=== PATIENT | male | born 1960 | race Caucasian/White ===

== ENCOUNTER 2019-01-16 16:44 | Observation (INO) ==
[2019-01-16] MEDS ORDERED: 0.9 % Sodium Chloride 1,000 ML IVC ONE (17:41)
[2019-01-16] MEDS ORDERED: diazePAM 10 MG/2 ML SYRINGE IVP STA (17:41)
[2019-01-16] MEDS ORDERED: Ondansetron 4 MG/2 ML VIAL IVP ONE (17:41)
[2019-01-16 18:03] LABS: Basophils % 0.4 %; Eosinophils # 0.1 K/mcL (0.0-0.6); Eosinophils % 0.8 %; Hemoglobin 14.8 g/dL (12.9-16.9); Immature Granulocytes % 0.3 % (0-4); Lymphocytes # 1.7 K/mcL (0.6-4.6); Lymphocytes % 22.4 %; Mean Corpuscular HGB Conc 31.5 g/dL (31.6-35.5); Mean Corpuscular Hemoglobin 27.4 pg (28.0-33.3); Mean Corpuscular Volume 86.9 fL (83.0-100.0); Mean Platelet Volume 12.5 fL (9.4-12.4); Monocytes # 0.6 K/mcL (0.0-1.3); Monocytes % 8.2 %; Neutrophils # 5.1 K/mcL (1.6-8.9); Platelet Count 191 K/mcL (140-400); Red Blood Count 5.41 M/mcL (4.19-5.50); Red Cell Distribution Width 14.3 % (11.5-14.5); Segmented Neutrophils % 67.9 %; White Blood Count 7.6 K/mcL (4.3-11.1)
[2019-01-16 18:43] LABS: BUN/Creatinine Ratio 25 (6-26); Blood Urea Nitrogen 26 mg/dL (6-20); Calcium 10.2 mg/dL (8.6-10.3); Carbon Dioxide 26 mEq/L (23-29); Chloride 102 mEq/L (98-107); Glucose 161 mg/dL (70-105); Magnesium 2.3 mg/dL (1.6-2.6); Osmolality,Calculated 294 (280-300); Sodium 138 mEq/L (136-145); Troponin I < 0.03 ng/mL (< 0.04); eGFR For African Americans > 60 (> 60); eGFR For Non-African Americans > 60 (> 60)
--- NOTE | 2019-01-16 19:20 | Emergency Department Note ---
Disposition Clinical Impression: Benign paroxysmal positional vertigo Qualifiers: Laterality: unspecified laterality Qualified Code(s): H81.10 - Benign paroxysmal vertigo, unspecified ear Disposition: Admitted As Inpatient Condition: Good Instructions: Benign Paroxysmal Positional Vertigo (ED) Referrals: Betty Storm CNP [Primary Care Provider] - Time of Disposition: 19:23 Dizziness HPI - General Chief Complaint: ED Dizziness Stated Complaint: vomiting/dizzy Time Seen by Provider: 01/16/19 17:24 Source: patient Limitations: no limitations Nursing Notes Reviewed: Yes Vital Signs Reviewed: Yes - History of Present Illness HPI Narrative: 58-year-old male since emergency room for vertigo component complaint. States started suddenly yesterday. Was seen at [facility] ER last night for same complaint. States all his workup was negative including a head CAT scan. States he was given medication in the ER and then was sent home and was doing better but once the medication wore off he started having worsening symptoms. He denies any falls or any head trauma. No fevers or chills or any neck pain or neck stiffness. He denies numbness in his face arm or leg. Again he describes this as a sudden onset vertigo yesterday. He has no other complaints other than associated nausea and vomiting secondary to the room spinning. States he opens his eyes he gets very dizzy and feels like the room is spinning. He did not get the Antivert filled that they wrote him yesterday. No speech comes. No tongue issues. No weakness on one side versus the other. - Related Data Home Medications Medication Instructions Recorded Confirmed Empagliflozin [Jardiance] 25 mg PO DAILY 01/16/19 01/16/19 Lisinopril [Zestril] 40 mg PO DAILY 01/16/19 01/16/19 Metoprolol Tartrate [Lopressor] 50 mg PO BID 01/16/19 01/16/19 Omeprazole [PriLOSEC] 40 mg PO BID 01/16/19 01/16/19 Pravastatin Sodium [Pravachol] 80 mg PO DAILY 01/16/19 01/16/19 hydroCHLOROthiazide 25 mg PO DAILY 01/16/19 01/16/19 [Hydrochlorothiazide] Allergies Allergy/AdvReac Type Severity Reaction Status Date / Time No Known Allergies Allergy Verified 01/16/19 17:17 All systems ED: reviewed and negative except as stated. Constitutional: Denies: fever Eyes: Reports: vision change. Denies: eye pain, eye discharge ENT ED: Reports: as per HPI Cardiovascular: Denies: chest pain, palpitations Respiratory: Denies: cough, dyspnea Gastrointestinal: Reports: nausea, vomiting. Denies: abdominal pain Genitourinary: Reports: as per HPI Musculoskeletal: Reports: as per HPI Integumentary: Reports: as per HPI Neurological: Reports: vertigo. Denies: headache Psychiatric: Reports: as per HPI Endocrine: Reports: as per HPI Hematological/Lymphatic: Reports: as per HPI Allergic/Immunologic: Reports: as per HPI Past Medical History - Past Medical History Medical history: Reports: COPD, CVA, diabetes, hyperlipidemia, hypertension, myocardial infarction - Social History Smoking Status: Former smoker Alcohol use: Reports: none Drug use: Reports: none Physical Exam - General Limitations: no limitations General appearance: alert, lethargic - Head Head exam: atraumatic, normocephalic - Eye Eye exam: Present: normal appearance, PERRL, EOMI. Absent: scleral icterus - ENT ENT exam: normal exam, normal oropharynx - Neck Neck exam: Present: normal inspection - Chest Chest inspection: Present: normal inspection - Respiratory Respiratory exam: Present: normal lung sounds bilaterally. Absent: respiratory distress - Cardiovascular Cardiovascular exam: Present: regular rate, normal rhythm. Absent: irregular rhythm - Abdominal Exam Abdominal exam: Present: soft, Non-Tender, normal bowel sounds - Extremities Exam Extremities exam: Present: normal inspection. Absent: tenderness, normal cap illary refill - Expanded Lower Extremity Exam Hip/Pelvis exam: Present: normal inspection - Neurological Exam Neurological exam: Present: alert, oriented X3, CN II-XII intact. Absent: motor sensory deficit - Expanded Neurological Exam Patient oriented to: Present: person, place, time Speech: Present: fluid speech Cerebellar function: finger to nose: Normal - Psychiatric Psychiatric exam: Present: normal affect, normal mood - Skin Skin exam: Present: warm, dry, intact Course Vital Signs Temperature 97.9 F 01/16/19 16:46 Pulse Rate 102 01/16/19 16:46 Respiratory Rate 20 01/16/19 16:46 Blood Pressure 181/98 01/16/19 16:46 O2 Sat by Pulse Oximetry 91 01/16/19 16:46 Temperature 97.9 F 01/16/19 17:09 Pulse Rate 77 01/16/19 19:09 Respiratory Rate 17 01/16/19 19:09 Blood Pressure 163/87 01/16/19 19:09 O2 Sat by Pulse Oximetry 100 01/16/19 19:09 Oxygen Delivery Oxygen Delivery Room Air Dizziness - MDM Narrative Medical decision making narrative: Screening lab work was negative. EKG was unremarkable. We are attempting to obtain the results and reports from [facility] ER from last night. Still awaiting those. The family and the patient stated the head CT was negative. Is no ataxia symptoms at this time. His symptoms seem like a BPPV with sudden onset vertigo. He has no focal motor or sensory deficits. We will admit. It is slightly better after some fluids and Valium and Zofran. I will also give him some Antivert. - Medical Records Medical records reviewed: Yes I reviewed the patient's medical records. - Lab Data Lab results reviewed: Yes I reviewed the patient's lab results. Result diagrams: 01/16/19 17:41 01/16/19 17:41 Lab Results 01/16/19 01/16/19 Range/Units 17:41 17:41 WBC 7.6 (4.3-11.1) K/mcL RBC 5.41 (4.19-5.50) M/mcL Hgb 14.8 (12.9-16.9) g/dL Hct 47.0 (37.5-50.1) % MCV 86.9 (83.0-100.0) fL MCH 27.4 L (28.0-33.3) pg MCHC 31.5 L (31.6-35.5) g/dL RDW 14.3 (11.5-14.5) % Plt Count 191 (140-400) K/mcL MPV 12.5 H (9.4-12.4) fL Immature Gran % 0.3 (0-4) % Seg Neutrophils % 67.9 % Lymphocytes % 22.4 % Monocytes % 8.2 % Eosinophils % 0.8 % Basophils % 0.4 % Neutrophils # 5.1 (1.6-8.9) K/mcL Lymphocytes # 1.7 (0.6-4.6) K/mcL Monocytes # 0.6 (0.0-1.3) K/mcL Eosinophils # 0.1 (0.0-0.6) K/mcL Basophils # 0.0 (0.0-0.2) K/mcL Sodium 138 (136-145) mEq/L Potassium 4.0 (3.5-5.1) mEq/L Chloride 102 (98-107) mEq/L Carbon Dioxide 26 (23-29) mEq/L BUN 26 H (6-20) mg/dL Creatinine 1.05 (0.70-1.30) mg/dL Est GFR ( Amer) > 60 (> 60) Est GFR (Non-Af Amer) > 60 (> 60) BUN/Creatinine Ratio 25 (6-26) Glucose 161 H (70-105) mg/dL Calculated Osmolality 294 (280-300) Calcium 10.2 (8.6-10.3) mg/dL Magnesium 2.3 (1.6-2.6) mg/dL Troponin I < 0.03 (< 0.04) ng/mL - EKG Data EKG attestation: Yes I reviewed and interpreted this EKG. EKG results narrative: EKG shows a rate of 78. Normal sinus rhythm. Normal axis. KS interval 158. QRS 104. QTC 569.
--- NOTE | 2019-01-16 19:55 | Emergency Department Note ---
START Narrative - START START: I specifically spoke with Tamiko WESTON. His CT of his brain was nonacute with no acute pathology and no bleed
[2019-01-17] MEDS ORDERED: *HR* Dextrose 50 % in Water (Syg) 50 ML SYRINGE IVP PRN (01:21)
[2019-01-17] MEDS ORDERED: Acetaminophen 325 MG TABLET PO PRN (01:21)
[2019-01-17] MEDS ORDERED: D5% in Water 1,000 ML IVC PRN (01:21)
[2019-01-17] MEDS ORDERED: Naloxone 0.4 MG/ML INJ IVP PRN (01:21)
[2019-01-17] MEDS ORDERED: Ondansetron 4 MG/2 ML VIAL IVP PRN (01:21)
[2019-01-17] MEDS ORDERED: Dextrose Gel 15 GM/37.5 ML TUBE PO PRN ×2 (01:21)
[2019-01-17] MEDS: 0.9 % Sodium Chloride w KCl 20 MEQ/1,000 ML MLS IVC SCH ×2 (02:02→14:20)
[2019-01-17 02:41] LABS: Basophils % 0.4 %; Eosinophils # 0.1 K/mcL (0.0-0.6); Eosinophils % 1.9 %; Hematocrit 41.4 % (37.5-50.1); Immature Granulocytes % 0.3 % (0-4); Lymphocytes % 26.4 %; Mean Corpuscular HGB Conc 31.6 g/dL (31.6-35.5); Mean Corpuscular Hemoglobin 27.6 pg (28.0-33.3); Mean Corpuscular Volume 87.2 fL (83.0-100.0); Mean Platelet Volume 11.6 fL (9.4-12.4); Monocytes # 0.6 K/mcL (0.0-1.3); Monocytes % 8.3 %; Neutrophils # 4.7 K/mcL (1.6-8.9); Platelet Count 172 K/mcL (140-400); Red Blood Count 4.75 M/mcL (4.19-5.50); Red Cell Distribution Width 14.2 % (11.5-14.5); Segmented Neutrophils % 62.7 %; White Blood Count 7.5 K/mcL (4.3-11.1)
[2019-01-17 02:42] LABS: Hemoglobin 13.1 g/dL (12.9-16.9)
[2019-01-17 02:50] LABS: Prothrombin Time 11.4 Seconds (9.4-12.1)
[2019-01-17 02:52] LABS: Activated Partial Thrombo Time 30.9 Seconds (26.0-36.0)
[2019-01-17 02:58] LABS: Alanine Aminotransferase 55 Units/L (7-52); Albumin 4.1 g/dL (3.5-5.7); Albumin/Globulin Ratio 1.2 (1.1-2.2); Alkaline Phosphatase 107 Units/L (34-104); Aspartate Amino Transferase 36 Units/L (13-39); BUN/Creatinine Ratio 26 (6-26); Bilirubin,Total 0.3 mg/dL (0.3-1.0); Blood Urea Nitrogen 29 mg/dL (6-20); Calcium 9.4 mg/dL (8.6-10.3); Carbon Dioxide 26 mEq/L (23-29); Chloride 103 mEq/L (98-107); Globulin 3.3 g/dL (2.4-3.5); Glucose 226 mg/dL (70-105); Osmolality,Calculated 303 (280-300); Potassium 3.5 mEq/L (3.5-5.1); Sodium 140 mEq/L (136-145); Total Protein 7.4 g/dL (6.4-8.9); eGFR For African Americans > 60 (> 60); eGFR For Non-African Americans > 60 (> 60)
--- NOTE | 2019-01-17 03:33 | Internal Med History&Physical ---
Date of Encounter: 01/17/19 Time of Encounter: 00:30 Internal Medicine - H&P: HPI Chief complaint: dizziness Admitted From: Emergency Dept Plans for Post Hospital Care: Home History of present illness: Mr. Carrasco is a 58 year old male who presents with complaints of profound dizziness, nausea, and vomiting. Symptoms started abruptly roughly 2 days ago. He has been nauseated and vomiting since then. Symptoms resolve while lying in bed resting and not moving. They are exacerbated with any movement, position changes, and head turning. He went to the ER at [facility] yesterday where he had a workup including CT of the head. His CT was reportedly negative. He was discharged home on antiemetics. Because symptoms persisted and worsened, he came to our ER tonight where he had no imaging studies performed. Furthermore, I requested imaging from the ER, but this was not done as he had it done at [facility]. He does relate to me that this was negative. However, we have yet to obtain any records from [facility] and/or confirmation of a negative CT of the head. Upon my assessment of the patient, he and his confirmed above history. He has no symptoms while lying in bed resting. However, as he sits up and turns his head, he becomes nauseated, dizzy, and the room was spinning around him. He denies any prior history of vertigo. He has had an old stroke roughly 15-16 years ago. He has hypertension, diabetes, and heart disease. All of these pose risk factors for stroke. He denies any focal deficits. He denies any numbness, weakness, dysphagia, or paresis. Because of his past history and lack of imaging of his head, I am requesting a stat MRI to further delineate his brain anatomy. Past Med Surg Social Fam HX - Past Medical History Attestation: Yes The following information was validated with the patient. Source: patient, obtained from family, other (very limited information from ER) Medical history: COPD, CVA, diabetes, hyperlipidemia, hypertension, myocardial infarction Psychiatric history: no psych history - Past Surgical History Surgical History: no surgical history - Social History Smoking Status: Former smoker Alcohol use: none Drug use: none Current living situation: Home, With Family Activity Level: Independent ambulation Recent Out of Country Travel Within the Last 8 Weeks: No - Family History Father Living Status: Hx Family Cancer: Yes Mother Living Status: Hx Family Cardiac Disorders: Yes Internal Medicine - H&P: Meds Empagliflozin [Jardiance] 25 mg PO DAILY 01/16/19 [History] Lisinopril [Zestril] 40 mg PO DAILY 01/16/19 [History] Metoprolol Tartrate [Lopressor] 50 mg PO BID 01/16/19 [History] Omeprazole [PriLOSEC] 40 mg PO BID 01/16/19 [History] Pravastatin Sodium [Pravachol] 80 mg PO DAILY 01/16/19 [History] hydroCHLOROthiazide [Hydrochlorothiazide] 25 mg PO DAILY 01/16/19 [History] Allergy/AdvReac Type Severity Reaction Status Date / Time No Known Allergies Allergy Verified 01/16/19 17:17 - Constitutional Constitutional: no chills, no fever(s), no night sweats - EENT Eyes: no blurry vision, no change in vision Ears: no ear pain, no tinnitus Nose, mouth and throat: no nasal congestion, no sinus pressure, no sore throat - Cardiovascular Cardiovascular ROS IM: no chest pain, no dyspnea, no dyspnea on exertion, no irregular heart rhythm, no lightheadedness, no palpitations, no paroxysmal nocturnal dyspnea, no syncope - Respiratory Respiratory: no cough, no dyspnea, no chest congestion, no excessive phlegm production - Gastrointestinal Gastrointestinal: nausea, vomiting, no abdominal pain, no diarrhea, no hematemesis, no hematochezia, no melena - Genitourinary Genitourinary ROS male: no dysuria, no flank pain, no hematuria - Musculoskeletal Musculoskeletal ROS IM: no arthralgias, no back pain - Integumentary Integumentary IM: no rash, no jaundice - Neurological Neurological ROS: dizziness, vertigo, no abnormal speech, no convulsions, no f ocal weakness, no frequent falls, no headache(s), no numbness, no paresthesias, no tingling - Psychiatric Psychiatric: no anxiety, no depression - Endocrine Endocrine IM: no polydipsia, no polyphagia, no polyuria - Allergic/Immunologic Allergic/Immunologic: no GI upset with certain foods - Constitutional Vitals: Temp Pulse Resp BP Pulse Ox 97.7 F 85 16 175/91 92 01/16/19 22:51 01/16/19 22:51 01/16/19 22:51 01/16/19 22:51 01/16/19 22:51 General appearance: Present: cooperative, A&O X 3, pleasant, no acute distress, answers questions appropriately Exam: becomes symptomatic with position changes and head turning - Head Head exam: Present: atraumatic, normal inspection - Eye Eye exam: Present: EOMI, PERRL. Absent: scleral icterus Pupils: Present: normal accommodation - ENT ENT exam: Present: mucous membranes dry, normal exam, normal oropharynx - Neck Neck exam general surgery: Present: full ROM, supple, trachea midline. Absent: lymphadenopathy, tenderness, nuchal rigidity, thyromegaly - Expanded Neck Exam Neck exam: Absent: carotid bruit - Respiratory Respiratory exam: Present: CTAB. Absent: chest wall tenderness, rales, rhonchi, wheezes - Cardiovascular Cardiovascular exam: Present: RRR, +S1, +S2, systolic murmur. Absent: diastolic murmur, irregular rhythm, JVD - GI/Abdominal GI/Abdominal exam: Present: normal bowel sounds, soft. Absent: guarding, hepatomegaly, mass, rebound, splenomegaly, tenderness - Extremities Exam Extremities exam: Present: normal capillary refill, warm, radial pulses palpable and symmetrical. Absent: calf tenderness, pedal edema, tenderness - Back Exam Back exam: Present: normal inspection. Absent: CVA tenderness (L), CVA tenderness (R) - Neurological Exam Neurological exam: Present: alert, CN II-XII intact, oriented X3, no focal deficits, strengths equal and symetr throughout. Absent: facial droop, speech deficit Additional comments: + nystagmus with head turning and position changes; normal [id number] and heel to melissa testing - Psychiatric Psychiatric exam: Present: normal affect, normal mood - Skin Skin exam: Present: dry, intact, warm Internal Med - H&P Results - Labs CBC & Chem 7: 01/17/19 02:20 01/17/19 02:20 Labs: Short CBC 01/16/19 01/17/19 Range/Units 17:41 02:20 WBC 7.6 7.5 (4.3-11.1) K/mcL Hgb 14.8 13.1 D (12.9-16.9) g/dL Hct 47.0 41.4 (37.5-50.1) % Plt Count 191 172 (140-400) K/mcL Neutrophils # 5.1 4.7 (1.6-8.9) K/mcL BMP 01/16/19 01/17/19 17:41 02:20 Sodium 138 140 Potassium 4.0 3.5 Chloride 102 103 Carbon Dioxide 26 26 BUN 26 H 29 H Creatinine 1.05 1.12 Glucose 161 H 226 H Calcium 10.2 9.4 Cardiac Enzymes 01/16/19 01/17/19 Range/Units 17:41 02:20 Troponin I < 0.03 < 0.03 (< 0.04) ng/mL Liver Function 01/17/19 Range/Units 02:20 Total Bilirubin 0.3 (0.3-1.0) mg/dL AST 36 (13-39) Units/L ALT 55 H (7-52) Units/L Alkaline Phosphatase 107 H (34-104) Units/L Albumin 4.1 (3.5-5.7) g/dL - Assessment and Plan (1) Benign paroxysmal positional vertigo Current Visit: Yes Status: Acute Assessment and plan: 1. Will treat with IVF, anti-emetics, and Meclizine PRN. 2. Unfortunately, I can not obtain any imaging studies or report from [facility] or our ER. 3. Will order MRI brain to rule out any cerebellar pathology. However, by history and exam, I suspect vertigo. Qualifiers: Laterality: unspecified laterality Qualified Code(s): H81.10 - Benign paroxysmal vertigo, unspecified ear (2) Type 2 diabetes mellitus Current Visit: Yes Status: Chronic Assessment and plan: 1. Hold oral home meds. 2. Will order SSI and monitor glucose closely, adjusting insulin as necessary. 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 Will order EKG, troponins, telemetry, ECHO, and Carotid Dopplers. 2. No signs of angina. 3. Resume home medicine as appropriate. Qualifiers: Coronary Disease-Associated Artery/Lesion type: [place] artery [place] vs. transplanted heart: [place] heart Associated angina: without angina Qualified Code(s): I25.10 - Atherosclerotic heart disease of [place] coronary artery without angina pectoris (4) Hypertension Current Visit: Yes Status: Chronic Assessment and plan: 1. Monitor BP and adjust med as necessary. 2. Resume home meds as appropriate. Qualifiers: Hypertension type: essential hypertension Qualified Code(s): I10 - Essential (primary) hypertension (5) DVT prophylaxis Current Visit: Yes Status: Acute Assessment and plan: 1. Heparin SQ.
[2019-01-17] MEDS ORDERED: *HR* Heparin 5,000 UNIT/ML VIAL SQ SCH (06:00)
[2019-01-17] MEDS ORDERED: Lisinopril 20 MG TABLET PO SCH (09:00)
[2019-01-17] MEDS: Insulin LISPRO 300 UNITS/3 ML VIAL SQ SCH ×2 (09:23→13:16)
[2019-01-17] MEDS ORDERED: Perflutren Lipid Microsphere 1.3 ML in 0.9 % Sodium Chloride 8.7 ML IVP ONE (10:00)
[2019-01-17 10:03] LABS: Estimated Average Glucose 203 mg/dl
[2019-01-17] MEDS ORDERED: Perflutren Lipid Microsphere 2 ML VIAL ONE (10:11)
[2019-01-17 10:38] VITALS: BP 177/92
[2019-01-17] MEDS ORDERED: 0.9 % Sodium Chloride 500 ML IVC ONE (13:56)
--- NOTE | 2019-01-17 15:12 | Discharge Summary ---
- NOTES TO OUTPATIENT PROVIDER Notes to Outpatient Provider: f/u with PCP in one week. If your vertigo persists please f/u with ENT as an out pt. Also start taking Meclizine 25mg TID PO As needed. Date of Encounter: 01/17/19 Time of Encounter: 15:07 - Discharge Diagnosis (1) Benign paroxysmal positional vertigo Priority: Primary Status: Acute Qualifiers: Laterality: unspecified laterality Qualified Code(s): H81.10 - Benign paroxysmal vertigo, unspecified ear (2) Type 2 diabetes mellitus Priority: Secondary Status: Chronic Qualifiers: Diabetes mellitus shelter insulin use: without salvage determiner use Diabetes mellitus complication status: with other specified complication Qualified Code(s): E11.69 - Type 2 diabetes mellitus with other specified complication (3) CAD (coronary artery disease) Priority: Secondary Status: Chronic Qualifiers: Coronary Disease-Associated Artery/Lesion type: [place] artery [place] vs. transplanted heart: [place] heart Associated angina: without angina Qualified Code(s): I25.10 - Atherosclerotic heart disease of [place] coronary artery without angina pectoris (4) Hypertension Priority: Secondary Status: Chronic Qualifiers: Hypertension type: essential hypertension Qualified Code(s): I10 - Essential (primary) hypertension (5) DVT prophylaxis Priority: Secondary Status: Acute Hospital course: Mr. Carrasco is a 58 year old male with known past medical history of hypertension, hyperlipidemia, diabetes type II, CVA, COPD and obesity pt presented to ER with complaint of profound dizziness, vertigo, nausea, and vomiting from last 2 days. He was admitted in the hospital and placed him on cardiac cath rn. He was started on symptomatic and supportive care with IV hydration, anti emetics and Meclizine. His brain MRI came back is negative for ischemia/infarction. His carotid Doppler showed 40-59% stenosis in ICA b/l. His 2 D Echo showed preserved LVEF and moderate LVH. Patient stated he is feeling little better today. Will d/c him home in stable condition today with PO Meclizine. Also recommend to f/u with ENT if his symptoms persist. - Time Spent with Patient Total time spent providing and/or coordinating discharge services: - Discharge Medications Prescriptions: New Meclizine HCl [Verticalm] 25 mg PO TID PRN #20 tablet PRN Reason: Vertigo Continued Omeprazole [PriLOSEC] 40 mg PO BID Metoprolol Tartrate [Lopressor] 75 mg PO BID Lisinopril [Zestril] 40 mg PO DAILY hydroCHLOROthiazide [Hydrochlorothiazide] 25 mg PO DAILY Empagliflozin [Jardiance] 25 mg PO DAILY Pravastatin Sodium [Pravachol] 80 mg PO HS EPINEPHrine [Epinephrine] 0.3 mg IM ONCE PRN PRN Reason: Allergic Reaction Home Medications: Empagliflozin [Jardiance] 25 mg PO DAILY 01/16/19 [History] Lisinopril [Zestril] 40 mg PO DAILY 01/16/19 [History] Metoprolol Tartrate [Lopressor] 75 mg PO BID 01/16/19 [History] Omeprazole [PriLOSEC] 40 mg PO BID 01/16/19 [History] Pravastatin Sodium [Pravachol] 80 mg PO HS 01/16/19 [History] hydroCHLOROthiazide [Hydrochlorothiazide] 25 mg PO DAILY 01/16/19 [History] EPINEPHrine [Epinephrine] 0.3 mg IM ONCE PRN 01/17/19 [History] Meclizine HCl [Verticalm] 25 mg PO TID PRN #20 tablet 01/17/19 [Rx] Allergies/Adverse Reactions: Allergy/AdvReac Type Severity Reaction Status Date / Time RED MEAT Allergy See Uncoded 01/17/19 13:30 Comments Date of admission: 01/16/19 19:29 Primary care physician: Betty Storm CNP - Constitutional Vitals: Temp Pulse Resp BP Pulse Ox 97.8 F 82 16 177/92 91 01/17/19 10:32 01/17/19 10:32 01/17/19 10:32 01/17/19 10:32 01/17/19 10:32 General appearance: Present: cooperative, A&O X 3, pleasant, no acute distress, answers questions appropriately Exam: Gen: Alert, awake, Oriented to time,place and person Chest: Diminished breath sounds B/L, No wheezing, No crackles, No rales Heart: S1S2+ RRR No murmurs Abd: Soft, NT, BS +, No organomegaly Ext: No edema, pulses are palpable, No calf tenderness Neuro : CUSTOMER SUCCESS INTERN II - XII intact, No Motor and sensory deficit noticed. No ataxic gait noticed Skin: No rash. - Patient Status Disposition: Home, Self-Care Condition: Good Overall status at discharge: patient is back to baseline - Discharge Instructions Follow Up With: Betty Storm CNP [Primary Care Provider] - 01/24/19 2:30 pm - Diet and Activity Activity: increase activity as tolerated Diet: low salt diet
--- NOTE | 2019-01-17 16:19 | Electrocardiograph Report ---
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
--- NOTE | 2019-01-17 23:35 | Electrocardiograph Report ---
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
[2019-01-18] MEDS ORDERED: hydroCHLOROthiazide 25 MG TABLET PO SCH (09:00)
== END 2019-01-17 16:33 | disposition home or self-care (01) ==
LOC: EMEROOARM 16:44 → 3BNU 16:44
PROVIDERS: ADMIT Family Medicine; ATTEND Family Medicine